=== PATIENT | female | born 1980 | race Caucasian/White ===

== ENCOUNTER → 2017-08-11 07:49 | Outpatient (CLI) | payer OTHER, SELFPAY ==
[2017-08-11 09:20] LABS: Absolute Lymphocyte Count 2.78 X10^3/ul (0.83-4.51); Absolute Neutrophil Count 5.8 X10^3/uL (2.0-7.7); Basophil# 0.02 X10^3/uL; Basophil% 0.2 % (0-1); Eosinophil# 0.16 X10^3/uL; Eosinophils% 1.7 % (0-5); Hematocrit 41.8 % (37-47); Hemoglobin 14.8 g/dl (12.0-15.0); Lymphocyte # 2.78 X10^3/ul (4.0); Lymphocyte % 30.1 % (19-41); Mean Corp Hgb Conc 35.4 g/gl (32-36); Mean Corpuscular Hgb 30.6 pg (27.0-32.0); Mean Corpuscular Volume 86.5 fL (81-99); Mean Platelet Vol. 11.1 fl (6.2-12.0); Monocyte# 0.45 X10^3/uL; Monocyte% 4.9 % (0-10); Neutrophil # 5.81 X10^3/uL (2.7-7.7); Neutrophil % 62.8 % (47-70); Platelet Count 237 K/mm3 (150-450); RBC Distribution Width CV 13.1 % (11.6-14.6); RBC Distribution Width SD 40.2 fl (35.1-43.9); Red Blood Count 4.83 M/mm3 (4.2-5.4); White Blood Count 9.3 K/mm3 (4.4-11.0)
[2017-08-11 09:21] LABS: POSITIVE COUNT NO; POSITIVE DIFFERENTIAL NO; POSITIVE MORPHOLOGY NO
[2017-08-11 09:53] LABS: AST(SGOT) 20 U/L (15-37); Alanine Aminotransfer ALT/SGPT 29 U/L (13-56); Alkaline Phosphatase 80 U/L (45-117); Bilirubin, Direct 0.08 mg/dL (0.00-0.30); Globulin 4.5 g/dL (2.2-4.2); Potassium 3.8 mmol/L (3.5-5.1); Protein, Total 7.5 g/dL (6.4-8.2)
[2017-08-18 08:11] LABS: QNTFERON TB Ag Minus Nil Value 0.02 IU/mL (.); QNTFERON TB Ag Value 0.07 IU/mL (.); QNTFERON TB Mitogen Value > 10.00 IU/mL (.); QNTFERON TB Nil Value 0.05 IU/mL (.)
[2017-08-18 08:16] LABS: QNTIFERON TB Gold Negative (Negative)
== END ==
PROVIDERS: Family Provider Internal Medicine; PCP Internal Medicine; Visit Provider Dermatology
DX: Z79.899 Other long term (current) drug therapy (principal); L40.0 Psoriasis vulgaris; B36.0 Pityriasis versicolor; L83 Acanthosis nigricans; L70.0 Acne vulgaris; L40.8 Other psoriasis
CPT/HCPCS: 36415; 80076; 84132; 85025; 86480

== ENCOUNTER → 2017-08-29 11:17 | Outpatient (CLI) | payer OTHER, SELFPAY ==
[2017-08-30 09:08] LABS: HIV - WCH Non-Reactive (Nonreactive)
[2017-08-31 08:13] LABS: HCV Quant. RNA PCR HCV Not Detected IU/mL (.)
[2017-08-31 14:52] LABS: HSV 1 IgG < 0.91 index (0.00-0.90); HSV 2 IgG < 0.91 index (0.00-0.90)
[2017-09-01 02:41] LABS: Rapid Plasmin Reagin (RPR) NONREACTIVE (NONREACTIVE)
== END ==
PROVIDERS: Family Provider Internal Medicine; PCP Internal Medicine; Visit Provider Nurse Practitioner Women's Health
DX: Z11.3 Encounter for screening for infections with a predominantly sexual mode of transmission (principal)
CPT/HCPCS: 36415; 86592; 86695; 86696; 86703; 87522

== ENCOUNTER → 2017-08-29 18:55 | Outpatient (CLI) | payer OTHER, SELFPAY ==
[2017-08-29 22:57] LABS: Chlamydia Trachomatis by PCR Negative (Negative); Neisserai gonorrhoeae by PCR Negative (Negative); Probe Check PASS; Sample Adequacy Control PASS; Specimen Processing Control PASS
[2017-09-08 07:07] LABS: HPV Genotype 16, Aptima Negative (Negative)
[2017-09-08 08:11] LABS: HPV APTIMA, High Risk Positive (Negative); HPV Genotype 18,45 Aptima Negative (Negative)
== END ==
PROVIDERS: Family Provider Internal Medicine; PCP Internal Medicine; Visit Provider Nurse Practitioner Women's Health
DX: Z11.3 Encounter for screening for infections with a predominantly sexual mode of transmission (principal); Z12.4 Encounter for screening for malignant neoplasm of cervix
CPT/HCPCS: 87491; 87591; 88175; G0145

== ENCOUNTER → 2017-10-12 18:03 | Outpatient (CLI) | payer OTHER, SELFPAY | PROVIDERS: Visit Provider Nurse Practitioner Women's Health | DX: A64 Unspecified sexually transmitted disease (principal) | CPT/HCPCS: 87255 ==

== ENCOUNTER → 2017-10-25 08:37 | Outpatient (CLI) | payer OTHER, SELFPAY ==
[2017-10-25 08:56] LABS: Absolute Lymphocyte Count 3.55 X10^3/ul (0.83-4.51); Absolute Neutrophil Count 7.6 X10^3/uL (2.0-7.7); Basophil# 0.03 X10^3/uL; Basophil% 0.2 % (0-1); Eosinophil# 0.13 X10^3/uL; Eosinophils% 1.1 % (0-5); Hematocrit 40.7 % (37-47); Hemoglobin 14.1 g/dl (12.0-15.0); Lymphocyte # 3.55 X10^3/ul (4.0); Lymphocyte % 29.1 % (19-41); Mean Corp Hgb Conc 34.6 g/gl (32-36); Mean Corpuscular Hgb 30.9 pg (27.0-32.0); Mean Corpuscular Volume 89.3 fL (81-99); Mean Platelet Vol. 10.4 fl (6.2-12.0); Monocyte# 0.83 X10^3/uL; Monocyte% 6.8 % (0-10); Neutrophil # 7.61 X10^3/uL (2.7-7.7); Neutrophil % 62.6 % (47-70); Platelet Count 298 K/mm3 (150-450); RBC Distribution Width CV 13.5 % (11.6-14.6); RBC Distribution Width SD 43.3 fl (35.1-43.9); Red Blood Count 4.56 M/mm3 (4.2-5.4); White Blood Count 12.2 K/mm3 (4.4-11.0)
[2017-10-25 09:00] LABS: Differential Indicated SCAN CRITERIA MET; POSITIVE COUNT NO; POSITIVE DIFFERENTIAL NO; POSITIVE MORPHOLOGY YES
[2017-10-25 09:24] LABS: ALB/GLOB Ratio 0.8 RATIO (0.9-2.4); AST(SGOT) 111 U/L (15-37); Alanine Aminotransfer ALT/SGPT 151 U/L (13-56); Albumin, Serum 3.7 g/dL (3.2-5.0); Alkaline Phosphatase 74 U/L (45-117); Anion Gap 10 (5-15); BUN 14 mg/dL (7-18); BUN/Creat Ratio 14.7 RATIO (10-20); Calcium,Total 9.1 mg/dL (8.5-10.1); Chloride 103 mmol/L (98-107); Creatinine, Serum 0.95 mg/dL (0.55-1.02); EST Glomerular Filtration Rate 71 mL/min (>60); Est Glom Filt Rate - Afr Amer 85 mL/min (>60); Globulin 4.6 g/dL (2.2-4.2); Glucose 96 mg/dL (74-106); Potassium 4.6 mmol/L (3.5-5.1); Protein, Total 8.3 g/dL (6.4-8.2); Sodium Level 139 mmol/L (136-145)
== END ==
PROVIDERS: Family Provider Internal Medicine; PCP Internal Medicine; Visit Provider Obstetrics & Gynecology
DX: R82.99 Other abnormal findings in urine (principal)
CPT/HCPCS: 36415; 80053; 85025

== ENCOUNTER → 2017-10-25 15:53 | Outpatient (CLI) | payer OTHER, SELFPAY | PROVIDERS: Family Provider Internal Medicine; PCP Internal Medicine; Visit Provider Obstetrics & Gynecology | DX: R30.0 Dysuria (principal); N89.8 Other specified noninflammatory disorders of vagina | CPT/HCPCS: 87070; 87077; 87086; 87186; 87205 ==

== ENCOUNTER 2017-11-01 16:10 | Emergency (ER) | payer OTHER, SELFPAY ==
[2017-11-01 16:11] VITALS: BP 123/90; PULSE 111; RESP 16; TEMP 36.9; O2SAT 98; BMI 35.1
--- NOTE | 2017-11-01 16:57 | CT_ITS ---
STUDY: CT BRAIN WITHOUT CONTRAST REASON FOR EXAM: Female, 37 years old. Syncope, trauma RADIATION DOSAGE (If Supplied By Facility): CTDIvol = ( 44.99 ) mGy, DLP = ( 779.24 ) mGycm TECHNIQUE: Transaxial CT imaging of the brain was performed without administration of intravenous contrast material. Individualized dose optimization techniques were used for this CT. COMPARISON: None. FINDINGS: Normal soft tissue structures. Normal calvarium. Normal size ventricles and extra-axial spaces for the patient's age. Normal white matter tracts of the cerebral hemispheres. Normal basal ganglia and thalami. Normal brainstem. Normal cerebellum. There is no intracranial hemorrhage. There are no findings of an acute ischemic infarction. Normal visualized paranasal sinuses. CT/Brain/Head without Contrast IMPRESSION: Normal unenhanced CT scan of the brain. Electronically Signed: eFr Asif MD at 18:40 EDT , Service support ,
--- NOTE | 2017-11-01 16:57 | EKG12_ITS ---
Test Reason : SYNCOPE Blood Pressure : / mmHG Vent. Rate : 095 BPM Atrial Rate : 095 BPM P-R Int : 156 ms QRS Dur : 088 ms QT Int : 344 ms P-R-T Axes : 034 015 024 degrees QTc Int : 432 ms Normal sinus rhythm Normal ECG Confirmed by LINDA OROZCO MD ([id number]), fashion editor CARLEE RENTERIA ([id number]) on 11/06/2017 2:43:45 PM Referred By: DC Confirmed By:LINDA OROZCO MD
--- NOTE | 2017-11-01 17:00 | RAD_ITS ---
STUDY: X-RAY CHEST REASON FOR EXAM: Female, 37 years old. Syncope TECHNIQUE: Single AP portable view of the chest. COMPARISON: None. FINDINGS: EKG leads overlie the chest The lungs are clear and expanded. There is no demonstrated pleural abnormality. Normal size heart. Normal mediastinum and janeth. Normal visualized pulmonary arteries. Normal visualized aortic arch and descending thoracic aorta. Normal visualized thoracic spine. Normal visualized ribs, clavicles, and shoulders. There is no demonstrated abnormality of the visualized soft tissue structures of the upper abdomen. RAD/Chest 1 View (Portable) IMPRESSION: Normal x-ray examination of the chest. Electronically Signed: Missael Lo MD at 17:15 EDT , Service support ,
[2017-11-01 18:13] LABS: Absolute Lymphocyte Count 1.73 X10^3/ul (0.83-4.51); Basophil# 0.02 X10^3/uL; Basophil% 0.4 % (0-1); Eosinophil# 0.07 X10^3/uL; Eosinophils% 1.3 % (0-5); Hematocrit 39.6 % (37-47); Hemoglobin 13.7 g/dl (12.0-15.0); Lymphocyte # 1.73 X10^3/ul (4.0); Lymphocyte % 31.7 % (19-41); Mean Corp Hgb Conc 34.6 g/gl (32-36); Mean Corpuscular Hgb 30.8 pg (27.0-32.0); Mean Platelet Vol. 10.7 fl (6.2-12.0); Monocyte# 0.62 X10^3/uL; Monocyte% 11.4 % (0-10); Neutrophil # 3.01 X10^3/uL (2.7-7.7); Neutrophil % 55.2 % (47-70); Platelet Count 214 K/mm3 (150-450); RBC Distribution Width CV 13.1 % (11.6-14.6); RBC Distribution Width SD 42.3 fl (35.1-43.9); Red Blood Count 4.45 M/mm3 (4.2-5.4); White Blood Count 5.5 K/mm3 (4.4-11.0)
[2017-11-01 18:17] LABS: POSITIVE COUNT NO; POSITIVE DIFFERENTIAL NO; POSITIVE MORPHOLOGY NO
[2017-11-01 18:30] LABS: ALB/GLOB Ratio 0.8 RATIO (0.9-2.4); AST(SGOT) 46 U/L (15-37); Alanine Aminotransfer ALT/SGPT 133 U/L (13-56); Albumin, Serum 3.4 g/dL (3.2-5.0); Alkaline Phosphatase 90 U/L (45-117); Anion Gap 12 (5-15); BUN 10 mg/dL (7-18); BUN/Creat Ratio 11.9 RATIO (10-20); Calcium,Total 8.5 mg/dL (8.5-10.1); Chloride 106 mmol/L (98-107); Creatinine, Serum 0.84 mg/dL (0.55-1.02); EST Glomerular Filtration Rate 81 mL/min (>60); Est Glom Filt Rate - Afr Amer 98 mL/min (>60); Globulin 4.1 g/dL (2.2-4.2); Glucose 105 mg/dL (74-106); Lipase 230 U/L (73-393); Potassium 3.5 mmol/L (3.5-5.1); Protein, Total 7.5 g/dL (6.4-8.2); Sodium Level 139 mmol/L (136-145)
[2017-11-01 18:30] LABS: Pregnancy, Serum, hCG Quali. NEGATIVE Negative (0-9 Nonpreg)
[2017-11-01 18:40] LABS: Mucous, Urine 0 SEEN /hpf (<or=2+); Red Blood Cells-Urine 0 SEEN /hpf (0-5)
[2017-11-01 18:50] VITALS: BP 121/85; BP 131/91; BP 132/94; PULSE 111; PULSE 133; PULSE 87; PULSE 89; RESP 17; O2SAT 99
[2017-11-01 18:51] LABS: Color, Urine Yellow (Yellow); Glucose, Dipstick Normal (Normal); Ketone-Dipstick Negative (Negative); Leukocyte Esterase-Dipstick 100 /ul (Negative); Nitrite-Dipstick Positive (Negative); Occult Blood-Urine 50 /ul (Negative); Protein-Dipstick 15 mg/dl (Negative); Urine Bilirubin Dipstick Negative (Negative); Urine Clarity Clear (Clear); Urine Urobilinogen Normal (Normal)
[2017-11-01 19:26] LABS: Bacteria 3+ /hpf (None Seen); Squamous Epithelial Cells - UA 0-5 SEEN /hpf (5-10); White Blood Cells 10-25 SEEN /hpf (0-5)
[2017-11-01] MEDS: 0.9% Normal Saline 1,000 ML 1000 ML IV (19:29)
[2017-11-01] MEDS: 0.9% Normal Saline 1,000 ML 999 ML IV (20:23)
[2017-11-01 20:24] VITALS: BP 146/89; PULSE 83; RESP 14; O2SAT 98
--- NOTE | 2017-11-01 20:37 | ED.VISSUMM ---
- ER Visit Summary Date of Service: 11/01/17 Chief Complaint: Fall History of Present Illness: The patient is a 37 F that fell at some point today. She woke up on the floor and believes she was unresponsive for several minutes. She does not recall any prodromal symptoms. She currently has some myalgias and back pain. She also has constipation. She has been self catheterizing. She is unsure why she cannot urinate. She has follow-up with urology later this week. She has a history of RA, HPV, herpes, depression, migraines, hepatitis of unknown etiology. Physical Examination: Afebrile and vital signs unremarkable except for heart rate of 111. No focal findings grossly. Heart regular. Lungs clear. Abdomen soft. Skin appears normal in color. Test Results: EKG showed sinus rhythm at a rate of 95. Chest x-ray negative. CT head negative. CBC normal. CMP unremarkable except for ALT of 133 and AST 43. Lipase normal. Urinalysis shows signs of infection. Culture pending. Troponin and hCG negative. Emergency Department Course and Treatment: Patient placed on a monitor. Orthostatics were positive. She was treated with fluid bolus. Patient otherwise had no new or worsening issues. She will continue her Cipro and follow-up with her urologist as planned. Cultures are pending. Patient declined admission for syncope. Would like to follow-up as an outpatient. She was treated with IV fluids prior to discharge. Patient voiced understanding and agreement with the plan. Treatment Plan: As above Disposition: Discharged Impression: 1. Dehydration 2. Syncope 3. Elevated liver enzymes This note was generated with [employer] dictation software. It may contain incorrect words, spelling, and punctuation that were not noted in review of the chart prior to signing ED Disposition - Plan for ED Patient: Chief Complaint: Syncope Referrals: Marily Richardson MD [Primary Care Provider] -
--- NOTE | 2017-11-01 20:40 | ED.DEP ---
ED Disposition - Plan for ED Patient: Chief Complaint: Syncope Instructions: ED Hypotension Orthostatic Referrals: Marily Richardson MD [Primary Care Provider] -
[2017-11-01 21:21] VITALS: BP 143/89; PULSE 79; RESP 16; O2SAT 100
== END 2017-11-01 21:33 | disposition home or self-care (01) ==
PROVIDERS: Emergency Provider Emergency Medicine; Family Provider Internal Medicine; PCP Internal Medicine
DX: R55 Syncope and collapse (principal); E86.0 Dehydration; R74.8 Abnormal levels of other serum enzymes; K59.00 Constipation, unspecified; M54.9 Dorsalgia, unspecified; F32.9 Major depressive disorder, single episode, unspecified; M06.9 Rheumatoid arthritis, unspecified; Z79.899 Other long term (current) drug therapy; G43.909 Migraine, unspecified, not intractable, without status migrainosus; Z86.19 Personal history of other infectious and parasitic diseases
CPT/HCPCS: 70450; 71045; 80053; 81001; 83690; 84484; 84703; 85025; 87086; 93005; 96360; 96361; 99285; J7030; A4216

== ENCOUNTER → 2017-11-08 14:51 | Outpatient (CLI) | payer OTHER, SELFPAY ==
--- NOTE | 2017-11-08 15:05 | ECHOD_ITS ---
Reason For Study: SYNCOPE Procedure This was a 2D Doppler, Color Flow transthoracic echocardiogram. Exam performed in department. Left Ventricle Normal LV size. Left ventricular systolic function is normal. The estimated ejection fraction is 55 %. Normal diastology for age. No regional wall motion abnormalities noted. Right Ventricle Normal RV size. Normal systolic function. Atria Normal left atrium. Normal right atrium. Mitral Valve Normal mitral valve. Tricuspid Valve Normal tricuspid valve. Mild (1+) tricuspid valve insufficiency. Pulmonary artery systolic pressure is 30 mmHg. Aortic Valve Normal aortic valve. Trisinus/trileaflet aortic valve. Pulmonic Valve Normal pulmonic valve. Great Vessels Normal aortic root. The pulmonary artery is normal size. Normal inferior vena cava. Pericardium/Pleural No pericardial effusion. MMode/2D Measurements & Calculations LVIDd: 4.2 cm IVSd: 1.0 cm Ao root diam: 3.0 cm LVIDs: 2.9 cm LVPWd: 0.98 cm LA dimension: 3.1 cm FS: 30.7 % LAV(MOD-bp): 32.7 ml LVAd ap4: 35.8 cm2 SV(MOD-sp4): 77.8 ml LAV(MOD-bp) Indexed: 15.1 ml/m2 EDV(MOD-sp4): 124.2 ml LAV(MOD-sp2): 33.3 ml EDV(sp4-el): 129.0 ml LAV(MOD-sp4): 32.1 ml LVAs ap4: 19.6 cm2 ESV(MOD-sp4): 46.4 ml ESV(sp4-el): 48.2 ml EF(MOD-sp4): 62.6 % EF(sp4-el): 62.6 % SV(sp4-el): 80.8 ml LA A4 area: 14.0 cm2 RA A4 area: 14.5 cm2 Time Measurements MV dec time: 0.25 sec Doppler Measurements & Calculations MV E max jaya: 90.0 cm/sec Lat Peak E' Jaya: 14.1 cm/sec Med Peak E' Jaya: 9.3 cm/sec MV A max jaya: 65.4 cm/sec E/E' lat: 6.4 E/E' med: 9.7 MV E/A: 1.4 Ao V2 max: 149.5 cm/sec LV V1 max: 151.9 cm/sec TR max jaya: 249.9 cm/sec Ao max P.9 mmHg LV V1 max P.2 mmHg TR max P.0 mmHg Interpretation Summary Normal LV size. Left ventricular systolic function is normal. The estimated ejection fraction is 55 %. Normal diastology for age. Ordering Physician: Marily Richardson Referring Physician: Marily Richardson Risk Performed By: Marycarmen Miller RDCS
== END ==
PROVIDERS: Family Provider Internal Medicine; PCP Internal Medicine; Visit Provider Internal Medicine
DX: R55 Syncope and collapse (principal)
CPT/HCPCS: 93306

== ENCOUNTER → 2017-11-10 10:35 | Outpatient (CLI) | payer OTHER, SELFPAY ==
[2017-11-10 11:29] LABS: AST(SGOT) 28 U/L (15-37); Alanine Aminotransfer ALT/SGPT 80 U/L (13-56); Albumin, Serum 3.4 g/dL (3.2-5.0); Alkaline Phosphatase 78 U/L (45-117); Bilirubin, Direct 0.11 mg/dL (0.00-0.30); Globulin 4.2 g/dL (2.2-4.2); Protein, Total 7.6 g/dL (6.4-8.2)
== END ==
PROVIDERS: Family Provider Internal Medicine; PCP Internal Medicine; Visit Provider Internal Medicine Cardiovascular Disease
DX: R55 Syncope and collapse (principal)
CPT/HCPCS: 36415; 80076

== ENCOUNTER → 2017-11-13 07:20 | Outpatient (CLI) | payer OTHER, SELFPAY ==
--- NOTE | 2017-11-13 07:33 | MRI_ITS ---
STUDY: MRI LUMBAR SPINE WITHOUT CONTRAST REASON FOR EXAM: Female, 37 years old. Back pain and hip pain TECHNIQUE: Standardized fat and water weighted pulse sequences were obtained in the sagittal and axial planes. COMPARISON: November 18, 2016 FINDINGS: T12-L1: Normal endplates. Normal disc height, hydration and morphology. Normal bilateral facet joints. Normal central canal and bilateral lateral recesses. Normal bilateral intervertebral neural foramina. Normal lumbar lordosis. There is no substantial scoliosis. Normal conus medullaris that terminates at T12-L1 L1-2: Normal endplates. Normal disc height, hydration and morphology. Normal bilateral facet joints. Normal central canal and bilateral lateral recesses. Normal bilateral intervertebral neural foramina. L2-3: Normal endplates. Normal disc height, desiccation and minimal annular bulge. Normal bilateral facet joints. Normal central canal and bilateral lateral recesses. Normal bilateral intervertebral neural foramina. L3-4: Normal endplates. Normal disc height, hydration and morphology. Normal bilateral facet joints. Normal central canal and bilateral lateral recesses. Normal bilateral intervertebral neural foramina. L4-5: Normal endplates. Normal disc height, hydration and small right posterolateral/foraminal disc protrusion. Normal bilateral facet joints. Normal central canal. Mild right lateral recess and neuroforaminal encroachment L5-S1: Normal endplates. Normal disc height, hydration and morphology. Normal bilateral facet joints. Normal central canal and bilateral lateral recesses. Normal bilateral intervertebral neural foramina. Normal visualized sacral ala. Normal visualized paraspinous soft tissue structures. MRI/Spine Lumbar (Routine) IMPRESSION: Mild spinal stenosis at L4-5 secondary to small right posterolateral/foraminal disc protrusion.. Minimal annular bulge at L2-3 without significant spinal stenosis Electronically Signed: Joon Richmond MD at 17:32 EDT , Service support ,
== END ==
PROVIDERS: Family Provider Internal Medicine; PCP Internal Medicine; Visit Provider Anesthesiology Pain Medicine
DX: M54.9 Dorsalgia, unspecified (principal); M79.606 Pain in leg, unspecified
CPT/HCPCS: 72148

== ENCOUNTER → 2017-12-04 10:29 | Outpatient (CLI) | payer OTHER, SELFPAY ==
[2017-12-04 12:38] LABS: AST(SGOT) 19 U/L (15-37); Alanine Aminotransfer ALT/SGPT 30 U/L (13-56); Albumin, Serum 3.3 g/dL (3.2-5.0); Alkaline Phosphatase 75 U/L (45-117); Bilirubin, Direct 0.12 mg/dL (0.00-0.30); Free T3 2.6 pg/mL (2.18-3.98); Globulin 4.3 g/dL (2.2-4.2); Protein, Total 7.6 g/dL (6.4-8.2); Thyroid Stim Hormone (TSH) 1.91 uIU/mL (0.358-3.74)
[2017-12-07 13:47] LABS: EBV Acute VCA IgM < 36.0 U/mL (0.0-35.9); EBV Early Antigen IgG <9.0 U/mL (0.0-8.9)
== END ==
PROVIDERS: Family Provider Internal Medicine; PCP Internal Medicine; Referring Provider Internal Medicine; Visit Provider Internal Medicine
DX: R53.83 Other fatigue (principal); R74.0 Nonspecific elevation of levels of transaminase and lactic acid dehydrogenase [LDH]; N94.9 Unspecified condition associated with female genital organs and menstrual cycle; R30.0 Dysuria; B00.9 Herpesviral infection, unspecified
CPT/HCPCS: 36415; 80076; 84439; 84443; 84481; 86663; 86664; 86665

== ENCOUNTER 2018-01-26 08:15 | Outpatient (RCR) | payer OTHER, SELFPAY ==
--- NOTE | 2017-08-08 08:35 | MASS.EVAL ---
Massage Therapy Evaluation: Initial Evaluation Date: 08/04/17 Pt. Name: Evelyne Harris :1980 V#: [id number] Referring Phys: Dr. 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 She presents today with symptoms of a migraine and lbp going up and down and across the sacrum area. Evelyne reports that the pain is a 7/10 at worst and 3/10 at rest. The patient is taking propanolol, singular,effexor, nexium, imtrex, oxybutin, celebrex, spirlactone as medications. Objective: The first treatment consisted of a mod- deep tissue upper body massage. I focused on the paraspinals, suboccipitals, right scalenes, upper trapezium, temporalis, ql's, sacral ligament, gluteus medius, and rhomboids. Trigger point therapy and neck stretches were performed. Assessment: Patient had good pain tolerance, muscles didnt seem to tender for palpation. There was alot of tension in the temporalis and suboccipitals with some trigger points throughout the upper trap and cervical region. The sacrum region was very ropey with some tenderness around the SI joint and along the edge of the sacrum into the glutes with active trigger points. A myofascial release was performed to the sacrum with it having very little mobility/ natural movement. I have treated Evelyne in the past with great success and feel that Evelyne is a great candidate for massotherapy at this time. Plan: The plan of care was reviewed with the patient. The patient is to be seen on a regular basis for a total of 10 visits for the year of 2018 for one hour sessions of massotherapy.
--- NOTE | 2017-08-08 08:55 | MASS.EVAL_ITS ---
Massage Therapy Evaluation: Initial Evaluation Date: 08/04/17 Pt. Name: Evelyne Harris :1980 V#: [id number] Referring Phys: Dr. 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 She presents today with symptoms of a migraine and lbp going up and down and across the sacrum area. Evelyne reports that the pain is a 7/10 at worst and 3/10 at rest. The patient is taking propanolol, singular,effexor, nexium, imtrex, oxybutin, celebrex, spirlactone as medications. Objective: The first treatment consisted of a mod- deep tissue upper body massage. I focused on the paraspinals, suboccipitals, right scalenes, upper trapezium, temporalis, ql's, sacral ligament, gluteus medius, and rhomboids. Trigger point therapy and neck stretches were performed. Assessment: Patient had good pain tolerance, muscles didnt seem to tender for palpation. There was alot of tension in the temporalis and suboccipitals with some trigger points throughout the upper trap and cervical region. The sacrum region was very ropey with some tenderness around the SI joint and along the edge of the sacrum into the glutes with active trigger points. A myofascial release was performed to the sacrum with it having very little mobility/ natural movement. I have treated Evelyne in the past with great success and feel that Evelyne is a great candidate for massotherapy at this time. Plan: The plan of care was reviewed with the patient. The patient is to be seen on a regular basis for a total of 10 visits for the year of 2018 for one hour sessions of massotherapy.
--- NOTE | 2017-08-21 16:54 | MASS.EVAL ---
Massage Therapy Evaluation: INITIAL EVALUATION: DATE:08/04/17 :82 PT NAME: THOMAS KATZ V#[id number] REFERRING PHYS: DR. 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 BENNETT WITH A DIAGNOSIS DDD. SHE PRESENTS TODAY WITH SYMPTOMS OF MIGRAINES AND LOW BACK PAIN. SHE REPORTS THAT THE PAIN LEVEL AT WORST IS 7/10 AND AT REST 3/10. THE SYMPTOMS HAVE BEEN PRESENT FOR YEARS. THE SYMPTOMS COMMENCED DUE TO MIGRAINES IS WEATHER AND HORMONES AND LBP FROM STANDING AND LIFTING.THOMAS REPORTED THAT SHE HAS BEEN GETTING EPIDURAL SHOTS IN HER LOW BACK EVERY 3-4 MONTHS FOR THE PAST 2-3 YEARS. SHE RATES HER OVERALL HEALTH TO BE IN GOOD CONDITION WITH SOME LIMITATIONS DURING DAILY LIVING ACTIVITIES. THOMAS IS CURRENTLY TAKING PROPANOLOL, SINGULAR, EFFEXOR, NEXIUM, IMITREX, OXYBUTIN, CELEBREX, AND SPIRLACTONE. OBJECTIVE: THE FIRST TREATMENT CONSISTED OF A MOD-DEEP TISSUE UPPER BODY MASSAGE. I FOCUSED ON PARASPINALS, SUBOCCIPITALS, SCALENES, UPPER TRAPEZIUM, TEMPORALIS, QUADRATUS LUMBORUM, GLUTEAL, SACRAL LIGAMENT, AND RHOMBOIDS. TRIGGER POINT THERAPY AND NECK STRETCHES WERE ALL PERFORMED. ASSESSMENT: MUSCLE TISSUE HAD HIGH TENSION THROUGHOUT THE UPPER BODY. THE PROBLEM AREAS SEEMED TO BE THE RIGHT SCALENE, SUBOCCIPITALS, AND TEMPORALIS WITH ACTIVE TRIGGER POINTS. THE LOW BACK PROBLEM AREAS WAS THE SACRAL LIGAMENT SEEMED VERY ROPEY. THE QL'S AND GLUTES HAD TRIGGER POINTS WELL THORACIC AND LUMBAR PARASPINALS. THE MUSCLES SEEMED TO RELEASE MODERATELY TOWARDS THE END OF THE HOUR AND PATIENT REPORTED TO FEELING REALLY GOOD POST THE MASSAGE. THE NEXT VISIT I FEEL BE FOCUSING SOME ON THE HAMSTRINGS AND TFL INTO GLUTES WOULD BENEFIT THE BACK PAIN. I FELL THAT THOMAS IS A GREAT CANDIDATE FOR MASSOTHERAPY AT THIS TIME. PLAN: THE PLAN OF CARE WAS REVIEWED WITH THE PATIENT. THE PATIENT IS TO BE SEEN 2X A MONTH THEN ON A REGULAR MONTHLY BASIS FOR A TOTAL OF 10 VISITS FOR ONE HOUR SESSIONS OF MASSOTHERAPY.
--- NOTE | 2017-08-21 17:17 | MASS.EVAL_ITS ---
Massage Therapy Evaluation: INITIAL EVALUATION: DATE:08/04/17 :81 PT NAME: THOMAS KATZ V# [id number] REFERRING PHYS: DR. 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 BENNETT WITH A DIAGNOSIS DDD. SHE PRESENTS TODAY WITH SYMPTOMS OF MIGRAINES AND LOW BACK PAIN. SHE REPORTS THAT THE PAIN LEVEL AT WORST IS 7/10 AND AT REST 3/10. THE SYMPTOMS HAVE BEEN PRESENT FOR YEARS. THE SYMPTOMS COMMENCED DUE TO MIGRAINES IS WEATHER AND HORMONES AND LBP FROM STANDING AND LIFTING.THOMAS REPORTED THAT SHE HAS BEEN GETTING EPIDURAL SHOTS IN HER LOW BACK EVERY 3-4 MONTHS FOR THE PAST 2-3 YEARS. SHE RATES HER OVERALL HEALTH TO BE IN GOOD CONDITION WITH SOME LIMITATIONS DURING DAILY LIVING ACTIVITIES. THOMAS IS CURRENTLY TAKING PROPANOLOL, SINGULAR, EFFEXOR, NEXIUM, IMITREX, OXYBUTIN, CELEBREX, AND SPIRLACTONE. OBJECTIVE: THE FIRST TREATMENT CONSISTED OF A MOD-DEEP TISSUE UPPER BODY MASSAGE. I FOCUSED ON PARASPINALS, SUBOCCIPITALS, SCALENES, UPPER TRAPEZIUM, TEMPORALIS, QUADRATUS LUMBORUM, GLUTEAL, SACRAL LIGAMENT, AND RHOMBOIDS. TRIGGER POINT THERAPY AND NECK STRETCHES WERE ALL PERFORMED. ASSESSMENT: MUSCLE TISSUE HAD HIGH TENSION THROUGHOUT THE UPPER BODY. THE PROBLEM AREAS SEEMED TO BE THE RIGHT SCALENE, SUBOCCIPITALS, AND TEMPORALIS WITH ACTIVE TRIGGER POINTS. THE LOW BACK PROBLEM AREAS WAS THE SACRAL LIGAMENT SEEMED VERY ROPEY. THE QL'S AND GLUTES HAD TRIGGER POINTS WELL THORACIC AND LUMBAR PARASPINALS. THE MUSCLES SEEMED TO RELEASE MODERATELY TOWARDS THE END OF THE HOUR AND PATIENT REPORTED TO FEELING REALLY GOOD POST THE MASSAGE. THE NEXT VISIT I FEEL BE FOCUSING SOME ON THE HAMSTRINGS AND TFL INTO GLUTES WOULD BENEFIT THE BACK PAIN. I FELL THAT THOMAS IS A GREAT CANDIDATE FOR MASSOTHERAPY AT THIS TIME. PLAN: THE PLAN OF CARE WAS REVIEWED WITH THE PATIENT. THE PATIENT IS TO BE SEEN 2X A MONTH THEN ON A REGULAR MONTHLY BASIS FOR A TOTAL OF 10 VISITS FOR ONE HOUR SESSIONS OF MASSOTHERAPY.
--- NOTE | 2018-02-08 11:00 | MASS.DISCH ---
Massage Therapy Discharge Summary: Initial Evaluation: 08/04/2017 Diagnosis: Degenerative Disc Disease No. of Visits: Date of last visit: 01/26/2018 Goals: Decreased pain Decreased stress/anxiety This patient is being discharged from our care at the [facility]. Thank you, Jyoti Mendez LMT
== END 2018-01-26 19:00 | disposition home or self-care (01) ==
LOC: MASS 08:15
PROVIDERS: Family Provider Internal Medicine; PCP Internal Medicine; Visit Provider Internal Medicine
DX: M51.37 Other intervertebral disc degeneration, lumbosacral region (principal)
CPT/HCPCS: 97124

== ENCOUNTER → 2018-07-24 12:41 | Outpatient (CLI) | payer OTHER, SELFPAY ==
[2018-07-24 13:24] LABS: Basophil% 0.1 % (0-1); Hematocrit 43.7 % (37-47); Hemoglobin 15.4 g/dl (12.0-15.0); Lymphocyte % 35.4 % (19-41); Mean Corp Hgb Conc 35.2 g/gl (32-36); Mean Corpuscular Hgb 30.7 pg (27.0-32.0); Mean Corpuscular Volume 87.2 fL (81-99); Mean Platelet Vol. 10.5 fl (6.2-12.0); Monocyte% 6.4 % (0-10); Neutrophil % 56.9 % (47-70); POSITIVE COUNT NO; POSITIVE DIFFERENTIAL NO; POSITIVE MORPHOLOGY NO; Platelet Count 291 K/mm3 (150-450); RBC Distribution Width CV 12.9 % (11.6-14.6); RBC Distribution Width SD 40.9 fl (35.1-43.9); Red Blood Count 5.01 M/mm3 (4.2-5.4); White Blood Count 10.5 K/mm3 (4.4-11.0)
[2018-07-24 13:25] LABS: Absolute Lymphocyte Count 3.73 X10^3/ul (0.83-4.51); Basophil# 0.01 X10^3/uL; Eosinophil# 0.11 X10^3/uL; Lymphocyte # 3.73 X10^3/ul (4.0); Monocyte# 0.67 X10^3/uL; Neutrophil # 5.99 X10^3/uL (2.7-7.7)
[2018-07-27 03:06] LABS: QNTFERON TB Mitogen Value > 10.00 IU/mL (.); QNTFERON TB Nil Value 0.02 IU/mL (.); QNTFERON TB1+ Ag Value 0.04 IU/mL (.); QNTFERON TB2+ Ag Value 0.05 IU/mL (.)
[2018-07-27 12:11] LABS: QNTIFERON TB Positive Criteria Negative (Negative)
== END ==
PROVIDERS: Family Provider Family Medicine; PCP Family Medicine; Referring Provider Dermatology; Visit Provider Dermatology
DX: L40.0 Psoriasis vulgaris (principal); L40.8 Other psoriasis; L74.511 Primary focal hyperhidrosis, face; Z79.899 Other long term (current) drug therapy
CPT/HCPCS: 36415; 85025; 86480

== ENCOUNTER → 2018-10-24 13:20 | Outpatient (CLI) | payer OTHER, SELFPAY ==
[2018-10-24 16:10] LABS: AST(SGOT) 24 U/L (15-37); Alanine Aminotransfer ALT/SGPT 28 U/L (13-56); Albumin, Serum 3.3 g/dL (3.2-5.0); Alkaline Phosphatase 79 U/L (45-117); Bilirubin, Direct 0.12 mg/dL (0.00-0.30); Cholesterol 159 mg/dL (200); Globulin 4.3 g/dL (2.2-4.2); High Density Lipoprotein 54 mg/dL; Protein, Total 7.6 g/dL (6.4-8.2); Triglycerides 230 mg/dL; Very Low Density Lipoprotein 46 mg/dL (5-40)
== END ==
PROVIDERS: Family Provider Family Medicine; PCP Family Medicine; Referring Provider Family Medicine; Visit Provider Family Medicine
DX: E78.5 Hyperlipidemia, unspecified (principal)
CPT/HCPCS: 36415; 80061; 80076

== ENCOUNTER 2019-01-10 08:00 | Outpatient (RCR) | payer OTHER, SELFPAY ==
--- NOTE | 2018-04-02 14:03 | MASS.EVAL ---
Massage Therapy Evaluation: Initial Evaluation Date: 04/02/2018 SUBJECTIVE: Evelyne is a 37 year old female who was referred to the [facility] facility for a massotherapy evaluation by Dr. Richardson with the diagnosis of degenerative disc disease and migraines. Evelyne presents today with the symptoms of tension and pain in her head and neck with pain in her low back and bilateral hip tension. She also complains of radiating pain in her lower extremities and buttocks. Evelyne reports having a past medical history of chronic low back pain. She reports having minimal improvement with exercise and stretching. OBJECTIVE: Upon observation Evelyne has poor posture with her head and shoulders forward from the neutral position in sitting and standing. After examination and palpation I found Evelyne to have moderate to high muscle tension with tenderness and myofascial restrictions in her sub occipitals, levator scapulae, trapezius, rhomboids, scalenes, and thoracic paraspinals. Her QL?s, lumbar paraspinals, piriformis, glute medius and minimus all were very tight with fascial restrictions, tender points and trigger points. The first treatment consisted of a one hour massage to her full body with myofascial release, muscle stripping, trigger point compression techniques, and cervical manual traction. ASSESSMENT: I feel that Evelyne is a good candidate for massotherapy at this time. She had a favorable response to the first treatment with reduction in her muscle aches, pain and tension. She also had improvement in her cervical flexibility and low back flexibility. PLAN: The plan of care was reviewed with the patient. The patient is to be seen on an as needed basis for a total of ten sessions with the recommendation of once every month for a one hour treatment.
--- NOTE | 2019-01-23 11:11 | MASS.DISCH ---
Massage Therapy Discharge Summary: Initial Evaluation Date: 04/02/2018 Diagnosis: Degenerative Disc Disease Migraines No. of Visits: Date of last visit: 01/10/2019 Goals: Evelyne's goals of decreased pain and improved relaxation were achieved throughout therapy. This patient is being discharged from our care at the [facility]. Thank you, Jyoti Mendez LMT
== END 2019-01-10 19:00 | disposition home or self-care (01) ==
LOC: MASS 08:00
PROVIDERS: Family Provider Internal Medicine; PCP Internal Medicine; Referring Provider Internal Medicine; Visit Provider Internal Medicine
DX: M51.37 Other intervertebral disc degeneration, lumbosacral region (principal); M54.5 Low back pain; G89.29 Other chronic pain; G43.009 Migraine without aura, not intractable, without status migrainosus
CPT/HCPCS: 97124

== ENCOUNTER → 2019-01-21 12:14 | Outpatient (CLI) | payer OTHER, SELFPAY ==
[2019-01-21 14:36] LABS: Anion Gap 9 (5-15); BUN 11 mg/dL (7-18); BUN/Creat Ratio 14.4 RATIO (10-20); Calcium,Total 8.5 mg/dL (8.5-10.1); Chloride 115 mmol/L (98-107); Creatinine, Serum 0.76 mg/dL (0.55-1.02); EST Glomerular Filtration Rate 90 mL/min (>60); Est Glom Filt Rate - Afr Amer 109 mL/min (>60); Glucose 80 mg/dL (74-106); Potassium 3.6 mmol/L (3.5-5.1); Sodium Level 143 mmol/L (136-145); Uric Acid 5.2 mg/dL (2.6-6.0)
== END ==
PROVIDERS: Family Provider Family Medicine; PCP Family Medicine; Referring Provider Family Medicine; Visit Provider Family Medicine
DX: M10.9 Gout, unspecified (principal)
CPT/HCPCS: 36415; 80048; 84550

== ENCOUNTER → 2019-01-28 09:56 | Outpatient (CLI) | payer OTHER, SELFPAY ==
--- NOTE | 2019-01-28 09:59 | RAD_ITS ---
STUDY: X-RAY - PELVIS AND LEFT HIP REASON FOR EXAM: Female, 38 years old. Increasing left hip pain. TECHNIQUE: 3 views of the pelvis and hip. COMPARISON: Left hip, December 08, 2014. FINDINGS: There is a non-specific bowel gas pattern. Normal visualized soft tissue structures. Normal bilateral iliac wings, sacroiliac joints and visualized sacrum. Normal bilateral superior and inferior pubic rami. Normal pubic symphysis. Normal bilateral ischial tuberosities. Normal visualized left femoral head. Normal left acetabulum. There is mild articular joint space narrowing of the hip. RAD/HIP, UNI W/ Pelvis 2-3 Views IMPRESSION: Mild stable degenerative changes of the left hip. Electronically Signed: Doc Schmidt DO at 17:37 EST Tel [phone], Service support ,
== END ==
PROVIDERS: Family Provider Family Medicine; PCP Family Medicine; Referring Provider Anesthesiology Pain Medicine; Visit Provider Anesthesiology Pain Medicine
DX: M25.552 Pain in left hip (principal)
CPT/HCPCS: 73502

== ENCOUNTER → 2019-04-23 16:35 | Outpatient (CLI) | payer OTHER, SELFPAY ==
[2019-04-23 10:05] VITALS: BMI 40.2
[2019-04-23 19:26] LABS: Chlamydia Trachomatis by PCR Negative (Negative); Neisserai gonorrhoeae by PCR Negative (Negative); Probe Check PASS; Sample Adequacy Control PASS; Specimen Processing Control PASS
[2019-04-26 12:07] LABS: HPV Genotype 16, Aptima Negative (Negative)
[2019-04-26 23:52] LABS: HPV APTIMA, High Risk Positive (Negative); HPV Genotype 18,45 Aptima Negative (Negative)
== END ==
PROVIDERS: PCP Family Medicine; Referring Provider Nurse Practitioner Women's Health; Visit Provider Nurse Practitioner Women's Health
DX: Z12.4 Encounter for screening for malignant neoplasm of cervix (principal); Z11.3 Encounter for screening for infections with a predominantly sexual mode of transmission
CPT/HCPCS: 87491; 87591; 87624; 88175; G0145

== ENCOUNTER → 2019-08-20 07:26 | Outpatient (CLI) | payer OTHER, SELFPAY ==
[2019-07-24 10:02] VITALS: BMI 39.8
[2019-08-20 07:33] LABS: Bacteria 0 SEEN /hpf (None Seen); Mucous, Urine 0 SEEN /hpf (<or=2+); Red Blood Cells-Urine 0 SEEN /hpf (0-5); White Blood Cells 0 SEEN /hpf (0-5)
[2019-08-20 08:11] LABS: Absolute Lymphocyte Count 3.69 X10^3/uL (0.83-4.51); Absolute Neutrophil Count 5.3 X10^3/uL (2.0-7.7); Basophil# 0.02 X10^3/uL; Basophil% 0.2 % (0-1); Eosinophil# 0.15 X10^3/uL; Eosinophils% 1.5 % (0-5); Hematocrit 40.3 % (37-47); Hemoglobin 13.7 g/dL (12.0-15.0); Lymphocyte # 3.69 X10^3/ul (4.0); Lymphocyte % 37.6 % (19-41); Mean Corpuscular Hgb 29.9 pg (27.0-32.0); Mean Platelet Vol. 10.6 fl (6.2-12.0); Monocyte# 0.61 X10^3/uL; Monocyte% 6.2 % (0-10); NRBC Flagged by Analyzer 0 % (0-5); Neutrophil # 5.33 X10^3/uL (2.7-7.7); Neutrophil % 54.3 % (47-70); Platelet Count 270 K/mm3 (150-450); RBC Distribution Width SD 40.4 fl (35.1-43.9); Red Blood Count 4.58 M/mm3 (4.2-5.4); White Blood Count 9.8 K/mm3 (4.4-11.0)
[2019-08-20 08:38] LABS: AST(SGOT) 18 U/L (15-37); Alanine Aminotransfer ALT/SGPT 31 U/L (13-56); Albumin, Serum 3.4 g/dL (3.2-5.0); Alkaline Phosphatase 98 U/L (45-117); Bilirubin, Direct 0.11 mg/dL (0.00-0.30); Globulin 4.2 g/dL (2.2-4.2); Protein, Total 7.6 g/dL (6.4-8.2)
[2019-08-20 08:54] LABS: Color, Urine Yellow (Yellow); Glucose, Dipstick Normal (Normal); Ketone-Dipstick Negative (Negative); Leukocyte Esterase-Dipstick Negative /ul (Negative); Nitrite-Dipstick Negative (Negative); Occult Blood-Urine Negative /ul (Negative); Protein-Dipstick Negative (Negative); Specific Gravity, Urine 1.015 (1.002-1.030); Urine Bilirubin Dipstick Negative (Negative); Urine Clarity Sl. Cloudy (Clear); Urine Urobilinogen Normal (Normal)
[2019-08-20 09:01] LABS: Squamous Epithelial Cells - UA 0-5 SEEN /hpf (5-10)
[2019-08-23 12:07] LABS: QNTFERON TB Mitogen Value > 10.00 IU/mL (.); QNTFERON TB Nil Value 0.03 IU/mL (.); QNTFERON TB1+ Ag Value 0.09 IU/mL (.)
[2019-08-23 14:56] LABS: QNTIFERON TB Positive Criteria Negative (Negative)
== END ==
PROVIDERS: PCP Family Medicine; Referring Provider Internal Medicine Rheumatology; Visit Provider Internal Medicine Rheumatology
DX: R82.90 Unspecified abnormal findings in urine (principal); L40.0 Psoriasis vulgaris; L40.8 Other psoriasis; Z79.899 Other long term (current) drug therapy; L74.511 Primary focal hyperhidrosis, face; L71.0 Perioral dermatitis
CPT/HCPCS: 36415; 80076; 81001; 85025; 86480

== ENCOUNTER → 2019-11-05 06:30 | Outpatient (CLI) | payer OTHER, SELFPAY ==
[2019-07-24 10:02] VITALS: BMI 39.8
--- NOTE | 2019-11-05 06:37 | MRI_ITS ---
STUDY: MRI LEFT HINDFOOT/ANKLE REASON FOR EXAM: Female, 39 years old. plantar fasciitis, achilles tendonitis left foot, heel pain TECHNIQUE: Standardized fat and water weighted pulse sequences were obtained in all 3 orthogonal planes. COMPARISON: None. FINDINGS: Mild tibiotalar arthrosis. Normal subtalar joint. Minimal talonavicular arthrosis. Normal navicular cuneiform joint. Normal calcaneocuboid joint. Normal tarsal metatarsal joints. Accessory navicular. No acute fracture. No acute dislocation. No acute bone destruction. Acute plantar fasciitis without plantar fascial tear (sagittal image 11 series 6) with bone marrow edema at the plantar calcaneal insertion. Tiny Achilles tendon enthesophyte. Normal Achilles tendon. Normal extensor tendons. Normal posterior tibialis and flexor tendons. Normal peroneus longus/brevis tendons. Syndesmotic ligament intact. Anterior and posterior talofibular ligaments intact. Deltoid ligament intact. Spring ligament intact. Lisfranc ligament intact. Soft tissue swelling at the undersurface of the foot and lateral ankle. Small tibiotalar/subtalar joint effusion. MRI/Lower Ext/No Jt/w/o IMPRESSION: Acute plantar fasciitis without tear Tiny Achilles tendon enthesophyte Minimal osteoarthritic features Soft tissue swelling with small joint effusion Electronically Signed: Flash Hale DO at 9:43 EDT Tel , Service support ,
== END ==
PROVIDERS: PCP Family Medicine; Referring Provider Podiatrist; Visit Provider Podiatrist
DX: M72.2 Plantar fascial fibromatosis (principal); M76.62 Achilles tendinitis, left leg
CPT/HCPCS: 73718

== ENCOUNTER 2019-12-12 07:00 | Outpatient (RCR) | payer OTHER, SELFPAY ==
[2019-07-24 10:02] VITALS: BMI 39.8
--- NOTE | 2019-09-12 11:31 | HP.PTEVAL_ITS ---
Patient's Visit Information THOMAS KATZ is a 38 year old F referred to Physical Therapy by Dr. Joon Alcantara DPM with a diagnosis of L plantar fascitis, achilles tendonitis, B hip bursitis. Date of Evaluation: 09/12/19 Physical Therapist: Fredy Garrett DPT - Visit Plan Frequency: 2x /Week Duration: 6 Weeks Plan: Start with DN and graston for L plantar fascia, include stretching of calf then progression of stability exercises for ankle and to increase tissue tolerance to all functional activities. B hips: start with TFL stretching, HS stretching, hip ER stretching. Add in glute med/max strengthening. Look at fucntional mobility to reduce recruitment of TFL. - Subjective Pt. is here today for her initial evaluation with diagnosis of L plantar fascitis, achilles tendonitis (Dr. Alcantara), but also B hip bursitis (IT band s yndrome) with script from Dr. Ashton. 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 reports having symptoms for ~2 months. Pt. reports no mech of injury, but had been trying to run when her symptoms all started. Pt. has recently stopped running due to pain. Pt. reports pain at medial aspect of platanr fascia. Pt. has pain at achilles tendon and at its insertion. Pt. denies N/T. She has started using a night split with some sucess. Pt. has worst ryne in AMs with initial few steps and her pain gets worse again at the end of her day. Pt. is stretching at home, but has not been icing much. Pt. reports decerased pain with sitting, but pain comes back with standing/walking. Pt. is hopeful to get back to all recerational activities and work activities without limitatations. B greater Trochanteric bursitis: Pt. reports having pain for years, no mech of injury noted. Pt. reports seeing physician who recommended injects, which she had. They helped for few weeks, but her pain has started to come back now. Pt. has not been stretching at home. She was trying to run, but is now just walking. She reports feeling grinding at her lateral hips with walking, especially at the end of her work day. Pt. does have some LBP at times, but she feels like this is her hips that are bothering her. Pt. denies N/T. Pt. reports pain is mostly isolated to B hips (L worse than R). Pt. reports symptoms worse with walking, running, standing at work. Pt. is hopeful to reduce symptoms in order to tolerate all work related activities and get back to recreational activities to promote healthy lifestyle. - Pain B hips Pain Intensity (Out of 10): 2 Pain Intensity Range: 1, 8 Comment: increased pain with prolonged walking, running L medial plantar fascia Pain Intensity (Out of 10): 3 Pain Intensity Range: 2, 8 - Objective POSTURE: Pt. has generally flexed posture. Pt. has equal wt. shift between BLEs. Pt. orellana normal iliac crest heights. Pt. does have increased pronation of B feet, worsens in SLS. PT. hip IR resulting in sligth knee valgus positoning. PALPATION: Pt. has increased pain at medial plantar fascia and along longitudinal arch, no pain at lateral plantar fascia. Increased pain along achilles tendon and tendon insertion. Mild pain along peroneal tendon as well. Pt. has increased pain at B greater troch. Pt. has mild gluteal pain with palpation. Pt. has no LBP with palpation. No pain distally along IT band. NEURO: Normal throughout BLEs. ROM: L ankle- DF 16deg increase in achilles tendon pain with 12deg and greater. Tightness noted with toe extension throughout L foot. R hip- flexion full ROM NE, exte 10deg NE (tightness), abd 45deg NE, ER 60deg (tightness, pain at greater troch). IR 30deg NE, + obers sign for pain and tightness. L hip-flexion full ROM NE, exte 10deg NE (tightness), abd 45deg NE, ER 70deg (tightness, pain at greater troch). IR 30deg NE, + obers sign for pain and tightness. GAIT: Pt. has increased B foot overpronation during stance phase. Pt. has refoot valgus (R worse than L). Pt. has icnreased B knee valgus and femoral IR positoning. Pt. has minimal lateral hip translation, but also has minimal hip extension. - Special Tests R Hip Scour: Negative R Hip BIANCA - Intraarticular Pathology: Negative R Hip FADDIR - Labrum: Negative R Hip Impingement Provocation - Labrum: Negative R Hip Jesusita - IT Band: Positive L Hip Scour: Negative L Hip Quadrant - Intraarticular Pathology: Negative L Hip BIANCA - Intraarticular Pathology: Negative L Hip FADDIR - Labrum: Negative L Hip Impingement Provocation - Labrum: Negative L Hip Jesusita - IT Band: Positive - Goals Goal 1:: LTG: Pt. to be I with HEP. Goal Time Frame: 4-6 Weeks Goal 2:: STG: Pt. to sleep throughout the night with 0-1/10 pain in L foot and B hips. Goal Time Frame: 2-4 Weeks Goal 3:: LTG: pt. to have increased hip ROM including IT band length, HS length and hip ER length in order to decrease hip stress with all functional mobility. Goal Time Frame: 4-6 Weeks Goal 4:: LTG: Pt. to have increased B hip abd, hip extension, and calf strength to full without increase in symptoms. Goal Time Frame: 4-6 Weeks Goal 5:: LTG: Pt. to complete a full work day with standing and walking with 0- 2/10 pain Goal Time Frame: 4-6 Weeks - Rehabilitation Potential Physical Therapy Diagnosis: Pt. has signs and symptoms consistent with L plantar fascitis, achilles tendonitis, B hip bursitis. Pt. has marked posture abnomalities effecting her fascia and bursa respectively. Pt. has marked weakness in B hip musculature. She is also very tight throughout B hip rotation and IT bands. Pt. would benefit from PT to address above limitations progressing back to all work and recreational activities. Rehabilitation Potential: Good - Anticipated Interventions Patient/Client Instruction: Educate patient on: Condition, Plan of Care, Risk Factors, Benefits of Fitness Program For the Purpose of:: To foster healthy habits, To improve decision making, To facilitate caregiver knowledge, To improve self management, To prevent re- injury, To improve ability to perform tasks related to life management, To improve tolerance to ADL's Therapeutic Exercise to Include: Strength training, Power training, Postural training, Flexibilty training, Gait and locomotor training, Passive ROM, Active ROM For the Purpose of:: To decrease pain, To decrease swelling/inflammation, To increase ROM, To improve nutrient delivery to tissue, To increase oxygenation perfusion, To improve muscle performance and motor function, To improve health of tissue, To decrease soft tissue restriction, To increase flexibility/ROM Manual Therapy Techniques to Include: Mobilization, Passive ROM, Functional dry needling, Soft tissue mobilization For the Purpose of:: To decrease pain, To decrease swelling/inflammation, To increase ROM, To improve nutrient delivery to tissue, To increase oxygenation perfusion, To improve muscle performance and motor function Cryotherapy (ice pack, ice massage): Yes Ultrasound (thermal/non thermal): Yes For the Purpose of:: To decrease pain, To decrease swelling/inflammation, To increase ROM Thank you for the opportunity to evaluate your patient. For Medicare and Medicare HMO plans, please review the plan of care and approve it. It will need to be FAXED BACK to us at [phone] for Medicare purposes. For Medicare only, by signing this I certify the plan of care. Please let me know if there are questions or concerns regarding this plan of care. Physician Signature: Date:
== END 2019-12-12 19:00 | disposition home or self-care (01) ==
LOC: PT 07:00
PROVIDERS: PCP Family Medicine; Referring Provider Orthopaedic Surgery; Visit Provider Podiatrist
DX: M72.2 Plantar fascial fibromatosis (principal); M76.62 Achilles tendinitis, left leg; M77.32 Calcaneal spur, left foot
CPT/HCPCS: 97014; 97035; 97110; 97140; 97162; G0283

== ENCOUNTER → 2020-01-08 09:50 | Outpatient (CLI) | payer OTHER, SELFPAY ==
[2019-07-24 10:02] VITALS: BMI 39.8
[2020-01-08 12:26] LABS: Absolute Lymphocyte Count 2.38 X10^3/uL (0.83-4.51); Absolute Neutrophil Count 5.3 X10^3/uL (2.0-7.7); Basophil# 0.03 X10^3/uL; Basophil% 0.4 % (0-1); Eosinophil# 0.14 X10^3/uL; Eosinophils% 1.7 % (0-5); Hematocrit 41.9 % (37-47); Hemoglobin 14.3 g/dL (12.0-15.0); Lymphocyte # 2.38 X10^3/ul (4.0); Lymphocyte % 29.1 % (19-41); Mean Corp Hgb Conc 34.1 g/dL (32-36); Mean Corpuscular Hgb 30.1 pg (27.0-32.0); Mean Corpuscular Volume 88.2 fL (81-99); Mean Platelet Vol. 11.1 fl (6.2-12.0); Monocyte# 0.34 X10^3/uL; Monocyte% 4.2 % (0-10); NRBC Flagged by Analyzer 0 % (0-5); Neutrophil # 5.27 X10^3/uL (2.7-7.7); Neutrophil % 64.4 % (47-70); Platelet Count 263 K/mm3 (150-450); RBC Distribution Width SD 41.7 fl (35.1-43.9); Red Blood Count 4.75 M/mm3 (4.2-5.4); White Blood Count 8.2 K/mm3 (4.4-11.0)
[2020-01-08 12:49] LABS: Anion Gap 9 (5-15); BUN 13 mg/dL (7-18); BUN/Creat Ratio 12.7 RATIO (10-20); Calcium,Total 8.5 mg/dL (8.5-10.1); Chloride 112 mmol/L (98-107); Creatinine, Serum 1.02 mg/dL (0.55-1.02); EST Glomerular Filtration Rate 64 mL/min (>60); Est Glom Filt Rate - Afr Amer 78 mL/min (>60); Glucose 169 mg/dL (74-106); Potassium 3.4 mmol/L (3.5-5.1); Sodium Level 140 mmol/L (136-145)
== END ==
PROVIDERS: PCP Family Medicine; Visit Provider Family Medicine
DX: Z01.818 Encounter for other preprocedural examination (principal)
CPT/HCPCS: 36415; 80048; 85025

== ENCOUNTER 2020-01-10 08:28 | Day surgery (SDC) | payer OTHER, SELFPAY ==
[2019-07-24 10:02] VITALS: BMI 39.8
[2020-01-10] VITALS (7 sets, daily range): BP systolic 101–124; BP diastolic 64–77; PULSE 79–105; RESP 16–18; TEMP 36.1–36.3; O2SAT 96–100; BMI 39.8
[2020-01-10] MEDS: Lactated Ringers 1,000 ML 100 ML IV (09:26)
[2020-01-10 09:55] LABS: Internal QC Validated? YES +Cl - CLEAR BKGD; Pregnancy, Serum, hCG Quali. NEGATIVE Negative
--- NOTE | 2020-01-10 09:55 | PCM.DC.POD ---
Discharge Diet: Light diet - advance as tolerated Discharge Activity: May not drive while taking narcotic pain medications., Use Crutches Weight Bearing Status: No weight bearing - No weightbearing left foot Keep extremity elevated above heart level: Left Leg - Keep left foot elevated using pillows for at least 50 minutes of every hour Call your doctor if your incision/area has: Continuous Slow Oozing, Sudden Increased Bleeding, Increased Pain/ Swelling, Increased Redness, Foul Smelling Discharge Call your doctor if you observe: Fever of 101 or Higher, Shortness of breath, Chest pain, Calf discomfort, Uncontrolled pain Cleanse incision/area with: Do not get Incision Wet, Keep Dressing Clean & Dry Additional Instructions: Start 160mg of aspirin by mouth once a day starting 01/11/2020 Allergies/Adverse Reactions: Allergies Penicillins Allergy (Verified 01/02/20 08:10) Rash fluconazole [From Diflucan] Adverse Reaction (Verified 01/02/20 08:10) elevated liver enzymes Medications to take at Discharge Albuterol Inhaler [Ventolin Hfa] 1 puff INHALATION Q4H PRN PRN 12/18/13 Esomeprazole Mag Trihydrate [Nexium] 40 mg PO DAILY 12/18/13 Montelukast [Singulair] 10 mg PO DAILY 12/18/13 Sumatriptan Succinate [Imitrex] 50 mg PO .X1 PRN 12/18/13 Venlafaxine HCl [Effexor] 225 mg PO DAILY 12/18/13 Fluticasone 0.05% [Flonase Nasal [place]] 2 spray NASAL PRN PRN 11/01/17 Stelara 1 injectable SQ UD 11/01/17 celecoxib 200 mg capsule 200 mg PO DAILY 11/10/17 gabapentin 100 mg capsule 200 mg PO BID cap 11/10/17 spironolactone 50 mg tablet 50 mg PO DAILY #90 tab 11/10/17 levonorgestrel 0.15 mg-ethinyl estradiol 0.03 mg tablet 1 tab PO DAILY #84 tab 03/12/19 rosuvastatin 5 mg tablet 5 mg PO DAILY 04/23/19 topiramate 100 mg tablet 100 mg PO DAILY 04/23/19 glycopyrrolate 1 mg tablet 1 mg PO BID-TID PRN 07/24/19 Lisinopril 5 mg PO DAILY 01/02/20 Valacyclovir HCl [Valacyclovir] 500 mg PO BID PRN 01/02/20 Hydrocodone Bitart/Apap 5-325 [[place] 5MG-325MG] 1 - 2 tablet PO Q6H PRN PRN 3 Days #25 tablet 01/10/20 The following prescriptions were given: Hydrocodone Bitart/Apap 5-325 [[place] 5MG-325MG] 1 - 2 tablet PO Q6H PRN PRN 3 Days #25 tablet PRN Reason: Pain Transmission Status: Sent to [facility] Orders to be completed after discharge: ,Urine Time Frame: 01/10/20, Facility: [facility], Location: Laboratory Primary Care Physician: Alejandro Whitmore MD [Primary Care Provider] - Test Results: Test results from this visit will be discussed in further detail at your follow-up appointment, if applicable. Please Follow Up With: Joon Alcantara DPM - Call Dr. Alcantara if needed: office: [phone], cell: [phone] When: follow up 1 week, sooner if needed.
--- NOTE | 2020-01-10 10:00 | RAD_ITS ---
STUDY: X-RAY - LEFT FOOT CLINICAL: Female, 39 years old. FASCIOTOMY WITH RESECTION TECHNIQUE: 9 fluoroscopic view(s) of the foot. Fluoroscopic time 17 seconds. COMPARISON: None. FINDINGS: Multiple fluoroscopic images demonstrate localization of the plantar spur and eventual removal of the spur. RAD/Foot min 3 Views IMPRESSION: Fluoroscopic images demonstrate plantar spur removal. Electronically Signed: Aggie Parker MD at 23:53 EST , Service support ,
[2020-01-10] MEDS: Bupivacaine Mpf 0.5% 30 ML VIAL (10:19)
--- NOTE | 2020-01-10 10:49 | PCM.OPRPT ---
Report of Operation Date of Procedure: 01/10/20 Pre-Operative Diagnosis: Plantar fasciitis with infracalcaneal spur, left Post-Operative Diagnosis: Same Surgery/Procedure Performed:: Plantar fasciotomy with resection of infracalcaneal spur, left foot lead android developer: yes - Dr. Moustapha Baker Type of Anesthesia:: General, Local Specimen's removed: None Estimated Blood Loss (mL): 1mL Description of Procedure: Indications: This is a 39 year old female with chronic plantar fasciitis and heel spur syndrome on the left foot despite extensive nonsurgical care - custom foot orthotics, rest, immobilization, injections, anti-inflammatories, physical therapy. She has elected to undergo surgical intervention - plantar fasciotomy with resection of infracalcaneal heel spur. This was discussed with her in detail, reviewed the possible benefits vs risks, goals, expectations, alternative options, and typical healing/post op recovery. The consent forms were reviewed with her, and she freely signed them. All of her questions were answered. No guarantees or warranties were given nor implied. Operative Procedure: The patient was brought back into the operating room and was placed on the operating room table in the supine position. She was carefully secured to the operating room table with a safety belt around the waist. A time out was performed and the patient was properly identified and the surgical plan was confirmed. The patient received 900mg of IV Clindamycin for antibiotic prophylaxis. A well padded pneumatic tourniquet was applied around the patient's left ankle. The patient received general anesthesia per the anesthesiologist, and a total of 20mL of 0.5% Bupivacaine plain was given as a regional nerve block around the heel surgical site. The left foot was scrubbed, prepped, draped in the usual aseptic fashion. The left foot was elevated for 3 minutes and the ankle pneumatic tourniquet was inflated to 250mmHg. The infracalcaneal spur was visualized on intra operative fluoroscopy, image was saved. A skin incision was made to the medial hindfoot at the level of the plantar fascia and infracalcaneal spur, careful dissection was completed down through the subcutaneous tissue layer. A plane was created superiorly and inferiorly around the plantar fascia and the medial 50% of the plantar fascia was released via a plantar fasciotomy. It was noted there was significant thickening of the plantar fascia with fibrosis consistent with chronic plantar fasciitis. The infracalcaneal spur was felt, and was carefully resected using a powered rasp. Resection of the infracalcaneal spur was confirmed using intraoperative fluoroscopy. Images pre and post infracalcaneal spur resection were saved. The site was flushed out with copious amounts of normal saline solution. The skin was reapproximated using 3-0 Nylon. An additional 8mL of 0.5% Bupivacaine plain was given as a local block around the heel surgical site. The pneumatic tourniquet was deflated (total tourniquet time was 24 minutes), and there was immediate return of warmth and perfusion to the foot and to all toes on the foot with normal temperature gradient and CFT < 2 seconds to all toes. Hemostasis was achieved. A dressing was applied which consisted of Betadine soaked adaptic, 4x4 gauze, Kerlix and ayad bandage, being sure to apply it not to tight. The patient tolerated the above operative procedure well at the anesthesia well with no complication. The patient was transported to the recovery room with vital signs stable and in good condition. Post operative orders were placed. Post operative instructions were reviewed and dispensed verbal and written. No weightbearing left foot, keep left foot elevated for at least 50 minutes of every hour, keep dressing clean, dry and intact. Prescription for [place] was provided, 1-2 tabs PO q 6 hours prn pain, also 160mg Aspirin PO once daily to help prevent a blood clot. She is to follow up within 1 week or sooner if needed. Left foot post op xrays obtained in the recovery room and confirmed infracalcaneal spur resection with no evidence of complication. Grafts/Implants Used: None - Complications None
--- NOTE | 2020-01-10 11:15 | RAD_ITS ---
STUDY: X-RAY - LEFT FOOT CLINICAL: Female, 39 years old. POST OP LEFT PLANTAR FASCIOTOMY TECHNIQUE: 3 view(s) of the foot. COMPARISON: None. FINDINGS: Postoperative changes in the plantar region of the hindfoot with a surgically altered plantar spur. There is a dorsal enthesophyte of the calcaneus. Otherwise normal calcaneus. Normal visualized subtalar, talonavicular, calcaneocuboid, tarsal and tarsometatarsal articulations. Normal metatarsi. There is degenerative arthrosis of the metatarsophalangeal joint of the hallux . Normal tibial and fibular sesamoid bones. Normal interphalangeal joint of the great toe. Normal phalanges of the great toe. Normal second through fifth metatarsophalangeal joints. Normal interphalangeal joints and phalanges of the lesser toes. The soft tissue structures are unremarkable. RAD/Foot min 3 Views IMPRESSION: Postoperative changes in the plantar region of the hindfoot with a surgically altered plantar spur. Dorsal enthesophyte of the calcaneus. Otherwise normal calcaneus. Otherwise no acute bone or joint findings. 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 Electronically Signed: Aggie Parker MD at 23:55 EST , Service support ,
== END 2020-01-10 13:32 | disposition home or self-care (01) ==
LOC: SDC 08:30 → AC 08:31
PROVIDERS: Anesthesiology; PCP Family Medicine; Referring Provider Podiatrist; Visit Provider Podiatrist
PROC: (CPT 28119; principal; 2020-01-10 09:45)
DX: M72.2 Plantar fascial fibromatosis (principal); M19.072 Primary osteoarthritis, left ankle and foot; Z87.891 Personal history of nicotine dependence; J45.909 Unspecified asthma, uncomplicated; I10 Essential (primary) hypertension; E78.00 Pure hypercholesterolemia, unspecified; K21.9 Gastro-esophageal reflux disease without esophagitis; F32.9 Major depressive disorder, single episode, unspecified
CPT/HCPCS: 01480; 28119; 36415; 73630; 76000; 84703; 87426; C9803; J7120; J2405

== ENCOUNTER 2020-02-05 12:15 | Outpatient (RCR) | payer OTHER, SELFPAY ==
[2019-04-23 10:05] VITALS: BMI 40.2
--- NOTE | 2020-02-06 08:59 | DS.PCM_ITS ---
Massage Therapy Discharge Summary: Initial Evaluation Date: 05/09/2019 Diagnosis: LBP/Migraines No. of Visits: 10 Date of last visit: 02/05/2020 This patient is being discharged from our care at the [facility]. Thank you, Jyoti Mendez LMT
== END 2020-02-05 19:00 | disposition home or self-care (01) ==
LOC: MASS 12:15
PROVIDERS: PCP Family Medicine; Referring Provider Family Medicine; Visit Provider Family Medicine
DX: M54.5 Low back pain (principal); G43.909 Migraine, unspecified, not intractable, without status migrainosus
CPT/HCPCS: 97124

== ENCOUNTER 2020-04-10 09:00 | Outpatient (RCR) | payer OTHER, SELFPAY ==
[2020-01-10 09:00] VITALS: BMI 39.8
--- NOTE | 2020-02-27 10:59 | HP.PTEVAL_ITS ---
Patient's Visit Information THOMAS KATZ is a 39 year old F referred to Physical Therapy by Dr. Joon Alcantara DPM with a diagnosis of Peroneal Tendonitis, Plantar Fasciotomy and Heel Spurr Resection. Date of Evaluation: 02/27/20 Physical Therapist: Nimco Foster DPT - Visit Plan Frequency: 2x /Week Duration: 4 Weeks Plan: Ultrasound and manual- proprioception and heel/toe gait pattern - Subjective Jan 09 Dr. Alcantara left foot plantar fasciotomy and ground down a heel spur- NWB in a boot for a week- then in boot WBAT then when he went to take stitches out blister and painful that she had to go back to NWB out of the boot for a week- went back to see him- put her in a shoe with orthotic. Now she has pain on the lateral side of the ankle behind the ankle bone. He put extra padding on the outside of the orthotic which helped a little but then it didn't anymore. Was planning on having her put the boot on but the ankle was still sore. Pain does not radiate. Describes the pain as sharp/shooting. Worst: 7/10 Agg: wa lking Eases: getting off of it. Takes a few minutes to get back to a throbbing. Best: 0/10. Sleep: not disturbed. Best in the AM when she wakes up since she has not been on it all day. Orthotics and good shoes. 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 No pain along the plantar fascia. PMHx/Med: none since surgery. - Objective Posture: fair throughout in chair. Gait: antalgic- decreased stance on the left LE. She has poor heel/toe pattern and prefers to use a flat foot progression with and without shoes. HR/TR: able with pain. SLS: weight shift but unable to SLS without pain. Palpatoin: tender along lateral malleoloar groove and down the 5th met. ROM: WNL in all planes- does report pain with inversion/everstion. Strength: 5/5 throughout ankle. Flex: HS: moderate, Gastroc: moderate, Soleus: moderate - Goals Goal 1:: Patient will be I with HEP and progression Goal Time Frame: 4-6 Weeks Goal 2:: Patient will SLS for 10 sec without LOB or pain Goal Time Frame: 4-6 Weeks Goal 3:: Patient will ambulate>300 feet with a normalized gait pattern Goal Time Frame: 4-6 Weeks - Rehabilitation Potential Physical Therapy Diagnosis: Patient presents with hypomobility. She has decreased flex and muscular endurance leading to poor heel/toe gait pattern and increased pain with ADL's. Rehabilitation Potential: Good - Anticipated Interventions Patient/Client Instruction: Educate patient on: Benefits of Fitness Program Therapeutic Exercise to Include: Strength training, Endurance training, Balance training, Coordination, Agility training, Body mechanics, Postural training, Flexibilty training, Gait and locomotor training, Neuromotor development, Dynamic Lumbar Stabilization, Scapular Strength/Stabilization For the Purpose of:: To improve muscle performance and motor function Manual Therapy Techniques to Include: Passive ROM, Functional dry needling, Soft tissue mobilization TENS: Yes Cryotherapy (ice pack, ice massage): Yes Thermo therapy (hot pack): Yes Ultrasound (thermal/non thermal): Yes Thank you for the opportunity to evaluate your patient. For Medicare and Medicare HMO plans, please review the plan of care and approve it. It will need to be FAXED BACK to us at [phone] for Medicare purposes. For Medicare only, by signing this I certify the plan of care. Please let me know if there are questions or concerns regarding this plan of care. Physician Signature: Date:
--- NOTE | 2020-03-26 10:41 | HP.PTREVAL ---
Dr. Joon Alcantara, DPM, It has been my pleasure to treat THOMAS KATZ over the last 8 visits for Peroneal Tendonitis, Plantar Fasciotomy and Heel Spurr Resection. Please see the progress note below for an update on the physical therapy plan of care! Subjective: Pt is feeling good, reports when walking 2/10 pain. There is still a constant discomfort in the area. Is seeing Dr. Alcantara today. Objective/Function: Posture: fair throughout in chair. Gait: mild heel/toe pattern and prefers to use a flat foot progression with and without shoes. HR/TR: able with slight increase in pain at end range of HR. SLS: weight shift but unable to SLS without pain. ROM: DF 10, PF 35, inversion 30, eversion 21 Strength: 5/5 throughout all planesankle Plan Plan: Pt to to report back to Dr. Alcantara to evalute if she should continue with therapy. Goals Goal 1:: Patient will be I with HEP and progression Goal Time Frame: 4-6 Weeks Goal 2:: Patient will SLS for 10 sec without LOB or pain Goal Time Frame: 4-6 Weeks Goal 3:: Patient will ambulate>300 feet with a normalized gait pattern Goal Time Frame: 4-6 Weeks Anticipated Interventions Patient/Client Instruction: Educate patient on: Benefits of Fitness Program Therapeutic Exercise to Include: Strength training, Endurance training, Balance training, Coordination, Agility training, Body mechanics, Postural training, Flexibilty training, Gait and locomotor training, Neuromotor development, Dynamic Lumbar Stabilization, Scapular Strength/Stabilization For the Purpose of:: To improve muscle performance and motor function Manual Therapy Techniques to Include: Passive ROM, Functional dry needling, Soft tissue mobilization TENS: Yes Cryotherapy (ice pack, ice massage): Yes Thermo therapy (hot pack): Yes Ultrasound (thermal/non thermal): Yes Please do not hesitate to contact me at [phone] by phone or if you have questions or concerns regarding this new plan of care! Sincerely, Nimco Foster DPT
--- NOTE | 2020-04-13 11:15 | HP.PTDCSUM_ITS ---
It has been my pleasure to treat THOMAS KATZ referred by Dr. Joon Alcantara DPM, with the diagnosis of Peroneal Tendonitis, Plantar Fasciotomy and Heel Spurr Resection for a total of 13 visit(s). Discharge Date: Please see the following information for a summary of their discharge status. Subjective: Pt reports it has been feeling. unable to reach 100% d/t pain/discomfort with extend periods of standing. Pt reports she has no pain unless she pushes it. Pt is going back to work in April left lateral ankle Pain Intensity (Out of 10): 0 % Improvement: 85 Objective/Function: Posture: fair throughout in chair. Gait: mild heel/toe pattern and prefers to use a flat foot progression with and without shoes. HR/TR: able with no increase in pain. SLS: able to maintain for 3 seconds without LOB. ROM: DF 10, PF 35, Strength: 5/5 throughout all planesankle Goal 1:: Patient will be I with HEP and progression Goal Progress: Goal Met Goal 2:: Patient will SLS for 10 sec without LOB or pain Goal Progress: Progressing Goal 3:: Patient will ambulate>300 feet with a normalized gait pattern Goal Progress: Progressing Plan: Pt to be d/c and continue with I HEP- encouraged to contact with questions and concerns. If there are questions or concerns regarding this patient's physical therapy, pl lara feel free to call me at [phone]. Thank you for the referral of this patient. Sincerely, Nimco Foster DPT
== END 2020-04-10 19:00 | disposition home or self-care (01) ==
LOC: PT 09:00
PROVIDERS: PCP Family Medicine; Referring Provider Podiatrist; Visit Provider Podiatrist
DX: M72.2 Plantar fascial fibromatosis (principal); Z98.890 Other specified postprocedural states
CPT/HCPCS: 97035; 97110; 97161; 97164

== ENCOUNTER → 2020-04-23 13:00 | Outpatient (CLI) | payer OTHER, SELFPAY ==
[2020-04-23 08:18] VITALS: BMI 41.1
[2020-04-28 03:06] LABS: Chlamydia By Nucleic Acid AMP Negative (Negative)
[2020-04-28 14:54] LABS: Gonococcus By Nucleic Acid AMP Negative (Negative)
[2020-04-29 09:57] LABS: HPV APTIMA, High Risk Negative (Negative)
== END ==
PROVIDERS: PCP Family Medicine; Referring Provider Nurse Practitioner Women's Health; Visit Provider Nurse Practitioner Women's Health
DX: Z12.4 Encounter for screening for malignant neoplasm of cervix (principal); Z11.3 Encounter for screening for infections with a predominantly sexual mode of transmission
CPT/HCPCS: 87491; 87591; 87624; 88175; G0145

== ENCOUNTER 2020-10-16 14:42 | Outpatient (CLI) | payer OTHER, SELFPAY ==
[2020-10-16] MEDS: 0.9% Saline Lock 10 ML Syringe IV (14:49)
[2020-10-16 14:51] VITALS: BP 149/102; PULSE 116; RESP 20; TEMP 36.9; O2SAT 98; BMI 38.7
[2020-10-16 15:26] VITALS: BP 130/96; PULSE 102; RESP 18; TEMP 36.8; O2SAT 100
[2020-10-16 16:19] VITALS: BP 136/98; PULSE 106; RESP 18; TEMP 36.8; O2SAT 99
== END 2020-10-16 16:26 | disposition home or self-care (01) ==
LOC: ICUOUT 19:51 → MS2 19:51
PROVIDERS: PCP Family Medicine; Referring Provider Nurse Practitioner Acute Care; Visit Provider Nurse Practitioner Acute Care
DX: Z23 Encounter for immunization (principal); U07.1 COVID-19
CPT/HCPCS: M0243; Q0244

== ENCOUNTER → 2020-12-10 10:46 | Outpatient (CLI) | payer OTHER, SELFPAY ==
[2020-12-10 12:48] LABS: AST(SGOT) 19 U/L (15-37); Alanine Aminotransfer ALT/SGPT 46 U/L (13-56); Albumin, Serum 3.1 g/dL (3.2-5.0); Alkaline Phosphatase 96 U/L (45-117); Bilirubin, Direct 0.15 mg/dL (0.00-0.30); Globulin 4.5 g/dL (2.2-4.2); Protein, Total 7.6 g/dL (6.4-8.2)
[2020-12-17 16:09] LABS: QNTFERON TB Mitogen Value > 10.00 IU/mL (.); QNTFERON TB Nil Value 0.01 IU/mL (.); QNTFERON TB1+ Ag Value 0.04 IU/mL (.); QNTFERON TB2+ Ag Value 0.03 IU/mL (.)
[2020-12-17 20:49] LABS: QNTIFERON TB Positive Criteria Negative (Negative)
== END ==
PROVIDERS: PCP Family Medicine; Referring Provider Dermatology; Visit Provider Dermatology
DX: L40.0 Psoriasis vulgaris (principal); L70.0 Acne vulgaris; Z79.899 Other long term (current) drug therapy; L74.511 Primary focal hyperhidrosis, face
CPT/HCPCS: 36415; 80076; 86480

== ENCOUNTER 2020-12-29 12:30 | Outpatient (RCR) | payer OTHER, SELFPAY ==
[2020-01-10 09:00] VITALS: BMI 39.8
--- NOTE | 2020-03-24 09:56 | MASS.EVAL ---
Massage Therapy Evaluation: Initial Evaluation Date: 03/23/2020 /Age: 08 1980, 39 Diagnosis: Degenerative Disc Disease Goals: Decrease muscle pain & tension Relaxation Assessment: Evelyne is a good candidate for massage at this time. We have had success treating her symptoms in the past. Plan: To be seen one time per month or PRN for a total of 10 one hour sessions.
--- NOTE | 2021-02-02 16:27 | DS.PCM_ITS ---
Massage Therapy Discharge Summary: Initial Evaluation Date: 03/23/20 Diagnosis: DDD No. of Visits: 3 Date of last visit: 12/29/20 This patient is being discharged from our care at the [facility]. Thank you, Jyoti Mendez LMT
== END 2020-12-29 19:00 | disposition home or self-care (01) ==
LOC: MASS 12:30
PROVIDERS: PCP Family Medicine; Referring Provider Family Medicine; Visit Provider Family Medicine
DX: M50.30 Other cervical disc degeneration, unspecified cervical region (principal)
CPT/HCPCS: 97124

== ENCOUNTER 2021-05-06 07:09 | Outpatient (CLI) | payer OTHER, SELFPAY ==
[2021-05-13 15:19] LABS: HPV APTIMA, High Risk Negative (Negative)
== END 2021-05-06 23:59 | disposition home or self-care (01) ==
LOC: LABSPEC 05-07 07:12
PROVIDERS: PCP Family Medicine; Visit Provider Nurse Practitioner Women's Health
DX: Z12.4 Encounter for screening for malignant neoplasm of cervix (principal)
CPT/HCPCS: 87624; 88175; G0145

== ENCOUNTER → 2022-09-07 | Outpatient (CLI) | payer OTHER, SELFPAY ==
[2022-09-13 14:19] LABS: HPV APTIMA, High Risk Negative (Negative)
== END | disposition home or self-care (01) ==
LOC: LABSPEC 16:27
PROVIDERS: PCP Family Medicine; Referring Provider Nurse Practitioner Women's Health; Visit Provider Nurse Practitioner Women's Health
DX: Z12.4 Encounter for screening for malignant neoplasm of cervix (principal)
CPT/HCPCS: 87624; 88175; G0145